=== PATIENT | female | born 1940 | race Caucasian/White ===

== ENCOUNTER 2018-02-03 10:42 | Day surgery (SDC) | payer MEDICARE, MEDICAID ==
[~2018-02-03 10:42] MED LIST: ALBU8HFA PO; ALPR-623 PO; ASPI-611 PO; ATOR10TA87 PO; BIMA2.5D EACHEYE; CALC0.5C2 PO; CLOP75TA35 PO; DULO-31 PO; GABA-532 PO; HYDR-3686 PO; HYDR-569 PO; INSU10VI SQ; LOSA50TA3 PO; NITR0.4T48 SL; SPIIN INH; TRAZ-143 PO
[2018-02-03] MEDS ORDERED: CHOL400T32 PO (16:40)
[2018-02-03] MEDS ORDERED: LORA10TA61 PO (16:40)
[2018-02-03] MEDS ORDERED: AMLO5TAB PO (16:41)
[2018-02-03] MEDS ORDERED: FURO-149 PO (16:42)
[2018-02-03] MEDS ORDERED: OXYC-150 PO (16:42)
[2018-02-03] MEDS ORDERED: OXYC-658 PO (16:43)
[2018-02-03] MEDS ORDERED: PRIM50TA27 (16:44)
== END 2018-02-03 12:46 ==
LOC: WOUND CARE 10:42
PROVIDERS: ATTEND Surgery
DX: E11.622 Type 2 diabetes mellitus with other skin ulcer (principal); L89.892 Pressure ulcer of other site, stage 2; L97.311 Non-pressure chronic ulcer of right ankle limited to breakdown of skin; I48.92 Unspecified atrial flutter; E11.39 Type 2 diabetes mellitus with other diabetic ophthalmic complication; H40.9 Unspecified glaucoma; E78.5 Hyperlipidemia, unspecified; I10 Essential (primary) hypertension; Z79.01 Long term (current) use of anticoagulants; Z95.1 Presence of aortocoronary bypass graft; Z79.82 Long term (current) use of aspirin
CPT/HCPCS: 36416; 82948; 97597; A6021; A6206; A6212

== ENCOUNTER 2018-02-18 10:30 | Day surgery (SDC) | payer MEDICARE, MEDICAID ==
[~2018-02-18 10:30] MED LIST changes: -ALBU8HFA PO; +AMLO5TAB PO; -ATOR10TA87 PO; -BIMA2.5D EACHEYE; -CALC0.5C2 PO; +CHOL400T32 PO; +FURO-149 PO; -HYDR-3686 PO; -HYDR-569 PO; +LORA10TA61 PO; -LOSA50TA3 PO; +OXYC-150 PO; +OXYC-658 PO; +PRIM50TA27; -SPIIN INH; -TRAZ-143 PO
== END 2018-02-18 12:04 | disposition home or self-care (01) ==
LOC: WOUND CARE 10:30
PROVIDERS: ATTEND Surgery
DX: E11.622 Type 2 diabetes mellitus with other skin ulcer (principal); L89.892 Pressure ulcer of other site, stage 2; L97.311 Non-pressure chronic ulcer of right ankle limited to breakdown of skin; I48.92 Unspecified atrial flutter; E11.39 Type 2 diabetes mellitus with other diabetic ophthalmic complication; H40.9 Unspecified glaucoma; E78.5 Hyperlipidemia, unspecified; I10 Essential (primary) hypertension; Z79.01 Long term (current) use of anticoagulants; Z95.1 Presence of aortocoronary bypass graft; Z79.82 Long term (current) use of aspirin
CPT/HCPCS: 36416; 82948; 97597; A6021; A6446

== ENCOUNTER 2018-02-24 10:37 | Day surgery (SDC) | payer MEDICARE, MEDICAID ==
[2018-02-24] MEDS ORDERED: LIDOcaine 2% 5ml jelly ONE (11:46)
[2018-02-24] MEDS ORDERED: CLIN300C17 (14:05)
== END 2018-02-24 13:25 | disposition home or self-care (01) ==
LOC: WOUND CARE 10:37
PROVIDERS: ATTEND Surgery
DX: E11.622 Type 2 diabetes mellitus with other skin ulcer (principal); L97.311 Non-pressure chronic ulcer of right ankle limited to breakdown of skin; L89.892 Pressure ulcer of other site, stage 2; I48.92 Unspecified atrial flutter; E11.39 Type 2 diabetes mellitus with other diabetic ophthalmic complication; H40.9 Unspecified glaucoma; E78.5 Hyperlipidemia, unspecified; I10 Essential (primary) hypertension; Z79.01 Long term (current) use of anticoagulants; Z95.1 Presence of aortocoronary bypass graft; Z79.82 Long term (current) use of aspirin
CPT/HCPCS: 87070; 87075; 87077; 87102; 87176; 87186; 97597; A6021; A6206; A6212

== ENCOUNTER 2018-03-03 11:17 | Day surgery (SDC) | payer MEDICARE, MEDICAID ==
[~2018-03-03 11:17] MED LIST changes: +CLIN300C17
== END 2018-03-03 12:54 | disposition home or self-care (01) ==
LOC: WOUND CARE 11:17
PROVIDERS: ATTEND Surgery
DX: E11.622 Type 2 diabetes mellitus with other skin ulcer (principal); L97.311 Non-pressure chronic ulcer of right ankle limited to breakdown of skin; L89.512 Pressure ulcer of right ankle, stage 2; E11.65 Type 2 diabetes mellitus with hyperglycemia; I48.92 Unspecified atrial flutter; E11.39 Type 2 diabetes mellitus with other diabetic ophthalmic complication; H40.9 Unspecified glaucoma; E78.5 Hyperlipidemia, unspecified; I10 Essential (primary) hypertension; Z79.01 Long term (current) use of anticoagulants; Z95.1 Presence of aortocoronary bypass graft; Z79.82 Long term (current) use of aspirin
CPT/HCPCS: 36416; 82948; 97597; A6021; A6206; A6212

== ENCOUNTER 2018-03-10 11:14 | Day surgery (SDC) | payer MEDICARE, MEDICAID ==
[2018-03-10] MEDS ORDERED: LIDOcaine 2% 5ml jelly ONE (11:26)
== END 2018-03-10 12:24 | disposition home or self-care (01) ==
LOC: WOUND CARE 11:14
PROVIDERS: ATTEND Surgery
DX: E11.622 Type 2 diabetes mellitus with other skin ulcer (principal); L97.311 Non-pressure chronic ulcer of right ankle limited to breakdown of skin; L89.512 Pressure ulcer of right ankle, stage 2; E11.65 Type 2 diabetes mellitus with hyperglycemia; I48.92 Unspecified atrial flutter; E11.39 Type 2 diabetes mellitus with other diabetic ophthalmic complication; H40.9 Unspecified glaucoma; E78.5 Hyperlipidemia, unspecified; I10 Essential (primary) hypertension; Z79.01 Long term (current) use of anticoagulants; Z95.1 Presence of aortocoronary bypass graft; Z79.82 Long term (current) use of aspirin
CPT/HCPCS: 36416; 82948; A6209; A6222; C5271; Q4102; A6250

== ENCOUNTER 2018-03-17 12:03 | Outpatient (CLI) | payer MEDICARE, MEDICAID ==
[2018-03-17] MEDS ORDERED: LIDOcaine 2% 5ml jelly ONE (12:23)
== END 2018-03-17 12:36 | disposition home or self-care (01) ==
LOC: WOUND CARE 12:03
PROVIDERS: ATTEND Surgery
DX: E11.622 Type 2 diabetes mellitus with other skin ulcer (principal); L97.311 Non-pressure chronic ulcer of right ankle limited to breakdown of skin; L89.512 Pressure ulcer of right ankle, stage 2; E11.65 Type 2 diabetes mellitus with hyperglycemia; I48.92 Unspecified atrial flutter; E11.39 Type 2 diabetes mellitus with other diabetic ophthalmic complication; H40.9 Unspecified glaucoma; E78.5 Hyperlipidemia, unspecified; I10 Essential (primary) hypertension; Z79.01 Long term (current) use of anticoagulants; Z95.1 Presence of aortocoronary bypass graft; Z79.82 Long term (current) use of aspirin
CPT/HCPCS: 99214; A6021; A6206; A6212

== ENCOUNTER 2018-03-24 11:26 | Day surgery (SDC) | payer MEDICARE, MEDICAID ==
[2018-03-24] MEDS ORDERED: LIDOcaine 2% 5ml jelly ONE (11:56)
== END 2018-03-24 13:03 | disposition home or self-care (01) ==
LOC: WOUND CARE 11:26
PROVIDERS: ATTEND Surgery
DX: E11.622 Type 2 diabetes mellitus with other skin ulcer (principal); L97.311 Non-pressure chronic ulcer of right ankle limited to breakdown of skin; L89.512 Pressure ulcer of right ankle, stage 2; E11.65 Type 2 diabetes mellitus with hyperglycemia; I48.92 Unspecified atrial flutter; E11.39 Type 2 diabetes mellitus with other diabetic ophthalmic complication; H40.9 Unspecified glaucoma; E78.5 Hyperlipidemia, unspecified; I10 Essential (primary) hypertension; Z79.01 Long term (current) use of anticoagulants; Z95.1 Presence of aortocoronary bypass graft; Z79.82 Long term (current) use of aspirin
CPT/HCPCS: 15271; 36416; 82948; A6209; A6222; Q4131; A6250

== ENCOUNTER 2018-03-31 11:00 | Outpatient (CLI) | payer MEDICARE, MEDICAID ==
[2018-03-31] MEDS ORDERED: LIDOcaine 2% 5ml jelly ONE (11:27)
== END 2018-03-31 12:25 | disposition home or self-care (01) ==
LOC: WOUND CARE 11:00 → EDSTATUS 11:30 → WOUND CARE 12:25
PROVIDERS: ATTEND Surgery
DX: E11.622 Type 2 diabetes mellitus with other skin ulcer (principal); L97.311 Non-pressure chronic ulcer of right ankle limited to breakdown of skin; L89.512 Pressure ulcer of right ankle, stage 2; E11.65 Type 2 diabetes mellitus with hyperglycemia; I48.92 Unspecified atrial flutter; E11.39 Type 2 diabetes mellitus with other diabetic ophthalmic complication; H40.9 Unspecified glaucoma; E78.5 Hyperlipidemia, unspecified; I10 Essential (primary) hypertension; Z79.01 Long term (current) use of anticoagulants; Z95.1 Presence of aortocoronary bypass graft; Z79.82 Long term (current) use of aspirin
CPT/HCPCS: 36416; 82948; 99215; A6021; A6206; A6212

== ENCOUNTER 2018-04-07 11:20 | Day surgery (SDC) | payer MEDICARE, MEDICAID ==
[2018-04-07] MEDS ORDERED: LIDOcaine 2% 5ml jelly ONE (11:47)
== END 2018-04-07 12:54 | disposition home or self-care (01) ==
LOC: WOUND CARE 11:20
PROVIDERS: ATTEND Surgery
DX: E11.622 Type 2 diabetes mellitus with other skin ulcer (principal); L97.311 Non-pressure chronic ulcer of right ankle limited to breakdown of skin; L89.512 Pressure ulcer of right ankle, stage 2; E11.65 Type 2 diabetes mellitus with hyperglycemia; I48.92 Unspecified atrial flutter; E11.39 Type 2 diabetes mellitus with other diabetic ophthalmic complication; H40.9 Unspecified glaucoma; E78.5 Hyperlipidemia, unspecified; I10 Essential (primary) hypertension; Z79.01 Long term (current) use of anticoagulants; Z95.1 Presence of aortocoronary bypass graft; Z79.82 Long term (current) use of aspirin
CPT/HCPCS: 36416; 82948; 97597; A6021; A6206; A6212

== ENCOUNTER 2018-04-07 13:10 | Outpatient (CLI) | payer MEDICARE, MEDICAID ==
[2018-04-07 14:21] LABS: CLARITY,URINE CLEAR (Clear); COLOR,URINE STRAW (Yellow); GLUCOSE, URINE NEGATIVE (Neg); KETONES,URINE NEGATIVE (Neg); LEUKOCYTE ESTERASE ,URINE TRACE (Neg); NITRITES, URINE NEGATIVE (Neg); OCCULT BLOOD,URINE NEGATIVE (Neg); PH,URINE 6.5 (4.8-8.0); PROTEIN,URINE NEGATIVE (Neg); UROBILINOGEN,URINE 0.2 E.U/dL (0.2-1.0)
[2018-04-07 14:22] LABS: BASOPHILS % (AUTO) 0.4 % (0-1); EOSINOPHILS # (AUTO) 0.2 X10'3 (0-0.9); EOSINOPHILS % (AUTO) 1.9 % (0-6); HEMATOCRIT 38.2 % (35.0-45.0); HEMOGLOBIN 12.9 g/dl (12.0-16.0); LYMPHOCYTES # (AUTO) 2.3 X10'3 (1.1-4.8); LYMPHOCYTES % (AUTO) 23.2 % (21-51); MEAN CORPUSCULAR HEMOGLOBIN 27.8 PG (27.0-31.0); MEAN CORPUSCULAR HGB CONC 33.6 % (33.0-36.5); MEAN CORPUSCULAR VOLUME 82.6 FL (78-98); MEAN PLATELET VOLUME 10.3 FL (7.4-10.4); MONOCYTES # (AUTO) 0.5 X10'3 (0-0.9); MONOCYTES % (AUTO) 4.9 % (2-12); NEUTROPHILS # (AUTO) 7.1 X10'3 (1.8-7.7); NEUTROPHILS % (AUTO) 69.6 % (42-75); PLATELET COUNT 214 X10'3 (140-440); RED BLOOD COUNT 4.62 X10'6 (4.20-5.60); RED CELL DISTRIBUTION WIDTH 16.5 % (11.5-14.5); WHITE BLOOD COUNT 10.1 X10'3 (4.5-11.0)
[2018-04-07 14:23] LABS: UA COLLECTION TYPE CLN CATCH MIDSTREAM
[2018-04-07 14:26] LABS: MUCUS STRANDS FEW /LPF (Neg); SQUAMOUS EPITHELIAL CELL,UR FEW /LPF (FEW)
[2018-04-07 14:27] LABS: BACTERIA,URINE FEW /HPF (Neg); HYALINE CASTS 0-3 /LPF (NEGATIVE); WBC CLUMPS,URINE MODERATE /HPF (NEGATIVE)
[2018-04-07 14:28] LABS: RBC,URINE 0-2 /HPF (0-2)
[2018-04-07 14:31] LABS: UA PROTEIN/CREATININE RATIO 0.68 mg/mg Cr (0-0.16)
[2018-04-07 14:37] LABS: ALANINE AMINOTRANSFERASE 27 U/L (12-78); ALBUMIN 3.2 G/DL (3.4-5.0); ALBUMIN/GLOBULIN RATIO 0.7 (1.1-1.5); ALKALINE PHOSPHATASE 147 IU/L (46-116); ANION GAP 8 (8-16); ASPARTATE AMINO TRANSFERASE 24 U/L (10-37); BILIRUBIN,TOTAL 0.2 MG/DL (0.1-1.0); BLOOD UREA NITROGEN 49 MG/DL (7-18); BUN/CREATININE RATIO 29.9 (6.6-38.0); CALCIUM 8.9 MG/DL (8.5-10.1); CHLORIDE 104 MMOL/L (99-107); CREATININE 1.64 MG/DL (0.40-0.90); GLUCOSE 216 MG/DL (70-104); MAGNESIUM 1.9 MG/DL (1.5-2.4); PHOSPHORUS 3.8 MG/DL (2.3-4.5); POTASSIUM 5.1 MMOL/L (3.5-5.1); SODIUM 141 MMOL/L (135-145); TOTAL CARBON DIOXIDE 29.4 MMOL/L (24-32); TOTAL PROTEIN 7.6 G/DL (6.4-8.2); eGFR 30 ML/MIN
== END 2018-04-07 23:59 | disposition home or self-care (01) ==
LOC: LAB 13:10
DX: I12.9 Hypertensive chronic kidney disease with stage 1 through stage 4 chronic kidney disease, or unspecified chronic kidney disease (principal); E11.22 Type 2 diabetes mellitus with diabetic chronic kidney disease; N18.4 Chronic kidney disease, stage 4 (severe); E55.9 Vitamin D deficiency, unspecified; D63.1 Anemia in chronic kidney disease; N30.01 Acute cystitis with hematuria; R80.9 Proteinuria, unspecified; J44.9 Chronic obstructive pulmonary disease, unspecified; Z87.891 Personal history of nicotine dependence
CPT/HCPCS: 36415; 80053; 81001; 82306; 82570; 83735; 84100; 84156; 85025; 87077; 87088; 87186

== ENCOUNTER 2018-04-14 10:57 | Outpatient (CLI) | payer MEDICARE, MEDICAID | END 2018-04-14 12:47 | disposition home or self-care (01) | LOC: WOUND CARE 10:57 → EDSTATUS 11:30 → WOUND CARE 12:47 | PROVIDERS: ATTEND Surgery | DX: E11.622 Type 2 diabetes mellitus with other skin ulcer (principal); L97.311 Non-pressure chronic ulcer of right ankle limited to breakdown of skin; L89.512 Pressure ulcer of right ankle, stage 2; E11.65 Type 2 diabetes mellitus with hyperglycemia; I48.92 Unspecified atrial flutter; E11.39 Type 2 diabetes mellitus with other diabetic ophthalmic complication; H40.9 Unspecified glaucoma; E78.5 Hyperlipidemia, unspecified; I10 Essential (primary) hypertension; Z79.01 Long term (current) use of anticoagulants; Z95.1 Presence of aortocoronary bypass graft; Z79.82 Long term (current) use of aspirin | CPT/HCPCS: 36416; 82948; 99215; A6212 ==

== ENCOUNTER 2018-04-28 11:07 | Day surgery (SDC) | payer MEDICARE, MEDICAID ==
[2018-04-28] MEDS ORDERED: LIDOcaine 2% 5ml jelly ONE (11:51)
== END 2018-04-28 12:43 | disposition home or self-care (01) ==
LOC: WOUND CARE 11:07
PROVIDERS: ATTEND Surgery
DX: E11.622 Type 2 diabetes mellitus with other skin ulcer (principal); L97.311 Non-pressure chronic ulcer of right ankle limited to breakdown of skin; L89.512 Pressure ulcer of right ankle, stage 2; E11.65 Type 2 diabetes mellitus with hyperglycemia; I48.92 Unspecified atrial flutter; E11.39 Type 2 diabetes mellitus with other diabetic ophthalmic complication; H40.9 Unspecified glaucoma; E78.5 Hyperlipidemia, unspecified; I10 Essential (primary) hypertension; Z79.01 Long term (current) use of anticoagulants; Z95.1 Presence of aortocoronary bypass graft; Z79.82 Long term (current) use of aspirin
CPT/HCPCS: 36416; 82948; 97597; A6021; A6206; A6212

== ENCOUNTER 2018-05-12 09:27 | Outpatient (CLI) | payer MEDICARE, MEDICAID | END 2018-05-12 10:15 | disposition home or self-care (01) | LOC: WOUND CARE 09:27 → EDSTATUS 09:30 → WOUND CARE 10:15 | PROVIDERS: ATTEND Surgery | DX: E11.622 Type 2 diabetes mellitus with other skin ulcer (principal); L97.311 Non-pressure chronic ulcer of right ankle limited to breakdown of skin; L89.512 Pressure ulcer of right ankle, stage 2; E11.65 Type 2 diabetes mellitus with hyperglycemia; I48.92 Unspecified atrial flutter; E11.39 Type 2 diabetes mellitus with other diabetic ophthalmic complication; H40.9 Unspecified glaucoma; E78.5 Hyperlipidemia, unspecified; I10 Essential (primary) hypertension; Z79.01 Long term (current) use of anticoagulants; Z95.1 Presence of aortocoronary bypass graft; Z79.82 Long term (current) use of aspirin | CPT/HCPCS: 99211; A6021; A6206; A6212 ==

== ENCOUNTER 2018-05-19 10:05 | Day surgery (SDC) | payer MEDICARE, MEDICAID | END 2018-05-19 11:51 | disposition home or self-care (01) | LOC: WOUND CARE 10:05 | PROVIDERS: ATTEND Surgery | DX: E11.622 Type 2 diabetes mellitus with other skin ulcer (principal); L97.311 Non-pressure chronic ulcer of right ankle limited to breakdown of skin; L89.512 Pressure ulcer of right ankle, stage 2; E11.65 Type 2 diabetes mellitus with hyperglycemia; I48.92 Unspecified atrial flutter; E11.39 Type 2 diabetes mellitus with other diabetic ophthalmic complication; H40.9 Unspecified glaucoma; I12.9 Hypertensive chronic kidney disease with stage 1 through stage 4 chronic kidney disease, or unspecified chronic kidney disease; E11.22 Type 2 diabetes mellitus with diabetic chronic kidney disease; N18.4 Chronic kidney disease, stage 4 (severe); D63.1 Anemia in chronic kidney disease; J44.9 Chronic obstructive pulmonary disease, unspecified; E78.5 Hyperlipidemia, unspecified; Z79.01 Long term (current) use of anticoagulants; Z95.1 Presence of aortocoronary bypass graft; Z79.82 Long term (current) use of aspirin; Z87.891 Personal history of nicotine dependence | CPT/HCPCS: 36416; 82948; 97597; A6021; A6206; A6212 ==

== ENCOUNTER 2018-05-26 11:38 | Outpatient (CLI) | payer MEDICARE, MEDICAID ==
[~2018-05-26 11:38] MED LIST changes: -CLIN300C17
[2018-05-26] MEDS ORDERED: LIDOcaine 2% 5ml jelly ONE (12:47)
[2018-05-26] MEDS ORDERED: nystatin/triamcinolone cream 15gm TP ONE (13:13)
[2018-05-26] MEDS ORDERED: MYCOL15O TOP (14:10)
== END 2018-05-26 13:22 | disposition home or self-care (01) ==
LOC: WOUND CARE 11:38
PROVIDERS: ATTEND Surgery
DX: E11.622 Type 2 diabetes mellitus with other skin ulcer (principal); L97.311 Non-pressure chronic ulcer of right ankle limited to breakdown of skin; L89.512 Pressure ulcer of right ankle, stage 2; E11.65 Type 2 diabetes mellitus with hyperglycemia; I48.92 Unspecified atrial flutter; E11.39 Type 2 diabetes mellitus with other diabetic ophthalmic complication; H40.9 Unspecified glaucoma; I12.9 Hypertensive chronic kidney disease with stage 1 through stage 4 chronic kidney disease, or unspecified chronic kidney disease; E11.22 Type 2 diabetes mellitus with diabetic chronic kidney disease; N18.4 Chronic kidney disease, stage 4 (severe); D63.1 Anemia in chronic kidney disease; J44.9 Chronic obstructive pulmonary disease, unspecified; E78.5 Hyperlipidemia, unspecified; Z79.01 Long term (current) use of anticoagulants; Z95.1 Presence of aortocoronary bypass graft; Z79.82 Long term (current) use of aspirin; Z87.891 Personal history of nicotine dependence
CPT/HCPCS: 36416; 82948; 99215; A6212

== ENCOUNTER 2018-06-02 11:07 | Outpatient (CLI) | payer MEDICARE, MEDICAID ==
[~2018-06-02 11:07] MED LIST changes: +MYCOL15O TOP
== END 2018-06-02 12:55 | disposition home or self-care (01) ==
LOC: WOUND CARE 11:07 → EDSTATUS 11:30 → WOUND CARE 12:55
PROVIDERS: ATTEND Surgery
DX: E11.622 Type 2 diabetes mellitus with other skin ulcer (principal); L97.311 Non-pressure chronic ulcer of right ankle limited to breakdown of skin; L89.512 Pressure ulcer of right ankle, stage 2; E11.65 Type 2 diabetes mellitus with hyperglycemia; I48.92 Unspecified atrial flutter; E11.39 Type 2 diabetes mellitus with other diabetic ophthalmic complication; H40.9 Unspecified glaucoma; I12.9 Hypertensive chronic kidney disease with stage 1 through stage 4 chronic kidney disease, or unspecified chronic kidney disease; E11.22 Type 2 diabetes mellitus with diabetic chronic kidney disease; N18.4 Chronic kidney disease, stage 4 (severe); D63.1 Anemia in chronic kidney disease; J44.9 Chronic obstructive pulmonary disease, unspecified; E78.5 Hyperlipidemia, unspecified; Z79.01 Long term (current) use of anticoagulants; Z95.1 Presence of aortocoronary bypass graft; Z79.82 Long term (current) use of aspirin; Z87.891 Personal history of nicotine dependence
CPT/HCPCS: 36416; 82948; 99215; A6212

== ENCOUNTER 2018-08-08 10:10 | Outpatient (CLI) | payer MEDICARE, MEDICAID ==
[2018-08-08] MEDS ORDERED: hydrocortisone 1% cream 28gm TP ONE (12:42)
== END 2018-08-08 12:50 | disposition home or self-care (01) ==
LOC: WOUND CARE 10:10
PROVIDERS: ATTEND Surgery
DX: E11.622 Type 2 diabetes mellitus with other skin ulcer (principal); L97.311 Non-pressure chronic ulcer of right ankle limited to breakdown of skin; L89.512 Pressure ulcer of right ankle, stage 2; E11.65 Type 2 diabetes mellitus with hyperglycemia; I48.92 Unspecified atrial flutter; E11.39 Type 2 diabetes mellitus with other diabetic ophthalmic complication; H40.9 Unspecified glaucoma; I12.9 Hypertensive chronic kidney disease with stage 1 through stage 4 chronic kidney disease, or unspecified chronic kidney disease; E11.22 Type 2 diabetes mellitus with diabetic chronic kidney disease; N18.4 Chronic kidney disease, stage 4 (severe); D63.1 Anemia in chronic kidney disease; J44.9 Chronic obstructive pulmonary disease, unspecified; E78.5 Hyperlipidemia, unspecified; Z79.01 Long term (current) use of anticoagulants; Z95.1 Presence of aortocoronary bypass graft; Z79.82 Long term (current) use of aspirin; Z87.891 Personal history of nicotine dependence
CPT/HCPCS: 99215; A6212

== ENCOUNTER 2019-01-02 10:25 | Outpatient (CLI) | payer MEDICARE, MEDICAID ==
[2019-01-02] MEDS ORDERED: LIDOcaine/PRILOcaine 5gm cream TP ONE (11:40)
--- NOTE | 2019-01-02 15:38 | NUR ---
Patient arrived safely into [facility] via wheelchair. Patient admitted to outpatient wound care for return visit with Yunior Salazar MD. Patient assessed and medications and medical history reviewed. Dr. Salazar at bedside accompanied by RN. Wound assessed and no debridement was done. Plan of care discussed with patient. Dressings placed per MD orders. Patient instructed on the signs and symptoms of infection and to call the Wound Center if any occur or to go to the ED if we are closed: Increased pain in wound Increase in drainage from the wound Redness in the skin surrounding the wound Bleeding from the wound Temperature of 101 or greater Patient instructed that elevated blood sugars delay healing of the wound and can cause further complications including but not limited to amputation of toes or feet. Patient instructed that the weight of their body puts a large amount of pressure on their wounds. This pressure keeps the new tissue from growing and inhibits new blood vessels from forming. Explained that, if they continue to bear weight on a body part that has a wound, the time it takes to heal the wound increases, the wound may get worse or the wound may not heal at all. Patient verbalized understanding of all discharge instructions and plan of care. Patient left in stable condition with no sign or symptom of distress at time of discharge. Addendum: 01/02/19 at 1542 by Amy Gunn RN Amended: Links added.
== END 2019-01-02 12:45 | disposition home or self-care (01) ==
LOC: WOUND CARE 10:25 → EDSTATUS 10:30 → WOUND CARE 12:45
PROVIDERS: ATTEND Surgery
DX: E11.622 Type 2 diabetes mellitus with other skin ulcer (principal); L97.311 Non-pressure chronic ulcer of right ankle limited to breakdown of skin; L89.512 Pressure ulcer of right ankle, stage 2; E11.65 Type 2 diabetes mellitus with hyperglycemia; I48.92 Unspecified atrial flutter; E11.39 Type 2 diabetes mellitus with other diabetic ophthalmic complication; H40.9 Unspecified glaucoma; I12.9 Hypertensive chronic kidney disease with stage 1 through stage 4 chronic kidney disease, or unspecified chronic kidney disease; E11.22 Type 2 diabetes mellitus with diabetic chronic kidney disease; N18.4 Chronic kidney disease, stage 4 (severe); D63.1 Anemia in chronic kidney disease; J44.9 Chronic obstructive pulmonary disease, unspecified; E78.5 Hyperlipidemia, unspecified; Z79.01 Long term (current) use of anticoagulants; Z95.1 Presence of aortocoronary bypass graft; Z79.82 Long term (current) use of aspirin; Z87.891 Personal history of nicotine dependence
CPT/HCPCS: 36416; 82948; G0463; A4414; A6446

== ENCOUNTER 2019-01-10 10:45 | Outpatient (CLI) | payer MEDICARE, MEDICAID ==
--- NOTE | 2019-01-10 12:27 | NUR ---
[facility] safely [facility]. Patient admitted to outpatient wound care for physician visit with Yunior Salazar MD. Dressing removed and wound cleansed. Patient assessed for changes in conditions, medications and medical history. Dr. Salazar at bedside accompanied by RN. Wound assessed, time out performed by MD/RN. Wound debrided as detailed in the physician progress/procedure note. Plan of care discussed with patient. Dressings placed per MD orders. Patient instructed on the signs and symptoms of infection and to call the Wound Center if any occur or to go to the ED if we are closed: Increased pain in wound Increase in drainage from the wound Redness in the skin surrounding the wound Bleeding from the wound Temperature of 101 or greater Patient instructed that elevated blood sugars delay healing of the wound and can cause further complications including but not limited to amputation of toes or feet. Patient instructed that the weight of their body puts a large amount of pressure on their wounds. This pressure keeps the new tissue from growing and inhibits new blood vessels from forming. Explained that, if they continue to bear weight on a body part that has a wound, the time it takes to heal the wound increases, the wound may get worse or the wound may not heal at all. Patient verbalized understanding of all discharge instructions and plan of care. Patient left in stable condition with no sign or symptom of distress at time of discharge. Addendum: 01/10/19 at 1235 by Amy Gunn RN Amended: Links added.
== END 2019-01-10 12:17 | disposition home or self-care (01) ==
LOC: WOUND CARE 10:45 → EDSTATUS 11:00 → WOUND CARE 12:17
PROVIDERS: ATTEND Surgery
DX: E11.622 Type 2 diabetes mellitus with other skin ulcer (principal); L97.311 Non-pressure chronic ulcer of right ankle limited to breakdown of skin; L89.512 Pressure ulcer of right ankle, stage 2; E11.65 Type 2 diabetes mellitus with hyperglycemia; I48.92 Unspecified atrial flutter; E11.39 Type 2 diabetes mellitus with other diabetic ophthalmic complication; H40.9 Unspecified glaucoma; I12.9 Hypertensive chronic kidney disease with stage 1 through stage 4 chronic kidney disease, or unspecified chronic kidney disease; E11.22 Type 2 diabetes mellitus with diabetic chronic kidney disease; N18.4 Chronic kidney disease, stage 4 (severe); D63.1 Anemia in chronic kidney disease; J44.9 Chronic obstructive pulmonary disease, unspecified; E78.5 Hyperlipidemia, unspecified; Z79.01 Long term (current) use of anticoagulants; Z95.1 Presence of aortocoronary bypass graft; Z79.82 Long term (current) use of aspirin; Z87.891 Personal history of nicotine dependence
CPT/HCPCS: 36416; 82948; 93926; G0463; A6212

== ENCOUNTER 2019-01-23 09:40 | Outpatient (CLI) | payer MEDICARE, MEDICAID ==
--- NOTE | 2019-01-23 16:29 | NUR ---
Patient arrived via wheelchair from [facility] and was admitted to outpatient wound care for physician visit with Yunior Salazar MD. Placed in contact isolation precautions per hospital policy. Dressing removed, wound cleansed. Patient assessed for changes in conditions, medications and medical history. 1010 - 108. Patient instructed that elevated blood sugars delay healing of the wound and can cause further complications including but not limited to amputation of toes or feet. 1028 - Dr. Salazar at bedside accompanied by RN. Wound assessed by MD; orders written. Plan of care discussed with patient. Dressings placed per MD orders. Patient instructed on the signs and symptoms of infection and to call the Wound Center if any occur or to go to the ED if we are closed: Increased pain in wound Increase in drainage from the wound Redness in the skin surrounding the wound Bleeding from the wound Temperature of 101 or greater Patient instructed that the weight of their body puts a large amount of pressure on their wounds. This pressure keeps the new tissue from growing and inhibits new blood vessels from forming. Explained that, if they continue to bear weight on a body part that has a wound, the time it takes to heal the wound increases, the wound may get worse or the wound may not heal at all. Patient verbalized understanding of all discharge instructions and plan of care and exited via wheelchair out to [facility] in stable condition with no sign or symptom of distress at time of discharge. Report called to Cody at [facility]. Cody is told of patient's stated complaint today of pain with urination and "they are not doing anything about it" - Cody states he will "order a UA right now". Wound care orders also discussed.
== END 2019-01-23 10:57 | disposition home or self-care (01) ==
LOC: WOUND CARE 09:40 → EDSTATUS 10:00 → WOUND CARE 10:57
PROVIDERS: ATTEND Surgery
DX: E11.622 Type 2 diabetes mellitus with other skin ulcer (principal); L97.311 Non-pressure chronic ulcer of right ankle limited to breakdown of skin; E11.65 Type 2 diabetes mellitus with hyperglycemia; I48.92 Unspecified atrial flutter; E11.39 Type 2 diabetes mellitus with other diabetic ophthalmic complication; H40.9 Unspecified glaucoma; I12.9 Hypertensive chronic kidney disease with stage 1 through stage 4 chronic kidney disease, or unspecified chronic kidney disease; E11.22 Type 2 diabetes mellitus with diabetic chronic kidney disease; N18.4 Chronic kidney disease, stage 4 (severe); D63.1 Anemia in chronic kidney disease; J44.9 Chronic obstructive pulmonary disease, unspecified; E78.5 Hyperlipidemia, unspecified; Z79.01 Long term (current) use of anticoagulants; Z95.1 Presence of aortocoronary bypass graft; Z79.82 Long term (current) use of aspirin; Z87.891 Personal history of nicotine dependence
CPT/HCPCS: 36416; 82948; G0463; A4414

== ENCOUNTER 2019-02-21 10:53 | Outpatient (CLI) | payer MEDICARE, MEDICAID ==
--- NOTE | 2019-02-21 12:58 | NUR ---
Patient ambulated with walker accompanied by son Semaj from [facility] and was admitted to outpatient wound care for physician visit with Yunior Salazar MD. Wound cleansed. Patient assessed for changes in conditions, medications and medical history. 1120 - blood glucose 197. Patient instructed that elevated blood sugars delay healing of the wound and can cause further complications including but not limited to amputation of toes or feet. 1210 - Dr. Salazar at bedside accompanied by RN. Wound assessed by MD; orders written. Plan of care discussed with patient and Semaj. Dressings placed per MD orders. Patient is to follow up on an as needed basis at the wound clinic. Patient instructed on the signs and symptoms of infection and to call the Wound Center if any occur or to go to the ED if we are closed: Increased pain in wound Increase in drainage from the wound Redness in the skin surrounding the wound Bleeding from the wound Temperature of 101 or greater Patient instructed that the weight of their body puts a large amount of pressure on their wounds. This pressure keeps the new tissue from growing and inhibits new blood vessels from forming. Explained that, if they continue to bear weight on a body part that has a wound, the time it takes to heal the wound increases, the wound may get worse or the wound may not heal at all. Patient and Semaj verbalized understanding of all discharge instructions and plan of care and ambulated with walker accompanied by Semaj out to [facility] in stable condition with no sign or symptom of distress at time of discharge.
== END 2019-02-21 12:22 | disposition home or self-care (01) ==
LOC: WOUND CARE 10:53 → EDSTATUS 11:00 → WOUND CARE 12:22
PROVIDERS: ATTEND Surgery
DX: E11.622 Type 2 diabetes mellitus with other skin ulcer (principal); L97.311 Non-pressure chronic ulcer of right ankle limited to breakdown of skin; E11.65 Type 2 diabetes mellitus with hyperglycemia; I48.92 Unspecified atrial flutter; E11.39 Type 2 diabetes mellitus with other diabetic ophthalmic complication; H40.9 Unspecified glaucoma; I12.9 Hypertensive chronic kidney disease with stage 1 through stage 4 chronic kidney disease, or unspecified chronic kidney disease; E11.22 Type 2 diabetes mellitus with diabetic chronic kidney disease; N18.4 Chronic kidney disease, stage 4 (severe); D63.1 Anemia in chronic kidney disease; J44.9 Chronic obstructive pulmonary disease, unspecified; E78.5 Hyperlipidemia, unspecified; Z79.01 Long term (current) use of anticoagulants; Z95.1 Presence of aortocoronary bypass graft; Z79.82 Long term (current) use of aspirin; Z87.891 Personal history of nicotine dependence
CPT/HCPCS: 36416; 82948; G0463; A6212

== ENCOUNTER 2019-06-10 20:35 | Emergency (ER) | payer MEDICARE, MEDICAID ==
[~2019-06-10] VITALS: Ht 149.9 cm; Wt 100.0 kg
[2019-06-10] MEDS ORDERED: morphine 4 MG/ML inj SYRINge IV ONE (20:45)
[2019-06-10 21:29] LABS: BASOPHILS # (AUTO) 0.1 X10'3 (0-0.2); BASOPHILS % (AUTO) 0.8 % (0-1); EOSINOPHILS # (AUTO) 0.1 X10'3 (0-0.9); EOSINOPHILS % (AUTO) 1.1 % (0-6); HEMATOCRIT 39.2 % (35.0-45.0); LYMPHOCYTES # (AUTO) 2.1 X10'3 (1.1-4.8); LYMPHOCYTES % (AUTO) 19.7 % (21-51); MEAN CORPUSCULAR HEMOGLOBIN 27.9 PG (27.0-31.0); MEAN CORPUSCULAR HGB CONC 33.1 g/dL (33.0-36.5); MEAN CORPUSCULAR VOLUME 84.3 FL (78-98); MEAN PLATELET VOLUME 10.7 FL (7.4-10.4); MONOCYTES # (AUTO) 0.5 X10'3 (0-0.9); MONOCYTES % (AUTO) 4.9 % (2-12); NEUTROPHILS % (AUTO) 73.5 % (42-75); PLATELET COUNT 179 X10'3 (140-440); RED BLOOD COUNT 4.65 X10'6 (4.20-5.60); RED CELL DISTRIBUTION WIDTH 15.2 % (11.5-14.5); WHITE BLOOD COUNT 10.9 X10'3 (4.5-11.0)
[2019-06-10 21:40] LABS: PARTIAL THROMBOPLASTIN TIME 36 SECONDS (22-32)
[2019-06-10 21:49] LABS: ALANINE AMINOTRANSFERASE 19 U/L (12-78); ALBUMIN/GLOBULIN RATIO 0.8 (1.1-1.5); ALKALINE PHOSPHATASE 103 IU/L (46-116); ANION GAP 7 (8-16); ASPARTATE AMINO TRANSFERASE 18 U/L (10-37); BILIRUBIN,TOTAL 0.3 MG/DL (0.1-1.0); BLOOD UREA NITROGEN 48 MG/DL (7-18); BUN/CREATININE RATIO 33.1 (6.6-38.0); CALCIUM 8.6 MG/DL (8.5-10.1); CHLORIDE 106 MMOL/L (99-107); CREATININE 1.45 MG/DL (0.40-0.90); GLUCOSE 175 MG/DL (70-104); POTASSIUM 4.3 MMOL/L (3.5-5.1); SODIUM 141 MMOL/L (135-145); TOTAL CARBON DIOXIDE 27.7 MMOL/L (24-32); TOTAL PROTEIN 6.9 G/DL (6.4-8.2); eGFR 35 ML/MIN
[2019-06-10] MEDS ORDERED: LORazepam 2 mg/ml vial IV ONE (22:15)
[2019-06-11 00:33] VITALS: BP 113/65
== END 2019-06-11 02:52 | disposition home or self-care (01) ==
LOC: ER 20:35
DX: R07.89 Other chest pain (principal); I25.10 Atherosclerotic heart disease of native coronary artery without angina pectoris; I10 Essential (primary) hypertension; M19.90 Unspecified osteoarthritis, unspecified site; G89.29 Other chronic pain; Z95.1 Presence of aortocoronary bypass graft; Z98.61 Coronary angioplasty status; Z88.0 Allergy status to penicillin; Z88.2 Allergy status to sulfonamides; Z88.8 Allergy status to other drugs, medicaments and biological substances; Z79.899 Other long term (current) drug therapy; Z79.82 Long term (current) use of aspirin; Z98.890 Other specified postprocedural states; Z90.49 Acquired absence of other specified parts of digestive tract
CPT/HCPCS: 36415; 71045; 80053; 84484; 85025; 85610; 85730; 93005; 96374; 96375; 99284; J2060; J2270

== ENCOUNTER 2021-02-17 10:59 | Emergency (ER) | payer MEDICARE, MEDICAID ==
[~2021-02-17] VITALS: Ht 157.5 cm; Wt 95.9 kg
[~2021-02-17 10:59] MED LIST changes: +CLOP75TA34 PO; -CLOP75TA35 PO
--- NOTE | 2021-02-17 11:58 | NUR ---
back from ct
[2021-02-17 12:32] LABS: CLARITY,URINE CLOUDY (Clear); COLOR,URINE STRAW (Yellow); UA COLLECTION TYPE CLN CATCH MIDSTREAM
[2021-02-17 12:33] LABS: URINE AMPHETAMINE SCREEN NEGATIVE (Neg); URINE BARBITUATE SCREEN NEGATIVE (Neg); URINE BENZODIAZEPINES SCREEN NEGATIVE (Neg); URINE CANNABINOID SCREEN NEGATIVE (Neg); URINE COCAINE SCREEN NEGATIVE (Neg); URINE METHADONE SCREEN NEGATIVE (Neg); URINE OPIATE SCREEN NEGATIVE (Neg); URINE PHENCYCLIDINE SCREEN NEGATIVE (Neg)
[2021-02-17 12:37] LABS: GLUCOSE, URINE NEGATIVE (Neg); KETONES,URINE NEGATIVE (Neg); LEUKOCYTE ESTERASE ,URINE LARGE (Neg); NITRITES, URINE POSITIVE (Neg); OCCULT BLOOD,URINE NEGATIVE (Neg); PH,URINE 5.5 (4.8-8.0); PROTEIN,URINE NEGATIVE (Neg); UROBILINOGEN,URINE 0.2 E.U/dL (0.2-1.0)
[2021-02-17 12:58] LABS: HYALINE CASTS 0-3 /LPF (NEGATIVE); SQUAMOUS EPITHELIAL CELL,UR MODERATE /LPF (FEW); WBC CLUMPS,URINE MANY /HPF (NEGATIVE)
[2021-02-17 12:59] LABS: WBC,URINE TNTC /HPF (0-4)
[2021-02-17 13:00] LABS: BACTERIA,URINE 4+ /HPF (Neg); RBC,URINE 0-2 /HPF (0-2); TRANSITIONAL EPI CELLS,URINE FEW /HPF
[2021-02-17] MEDS ORDERED: dexamethasone sod phosphate 10mg/ml inj IV STA (13:35)
[2021-02-17] MEDS ORDERED: CefTRIAXone 2gm/D5W 50ml BAG 50 ML IV ONE (13:35)
[2021-02-17] MEDS ORDERED: vancomycin/NS 1 GM ADD-VANTAGE 250 ML IV ONE (13:35)
[2021-02-17] MEDS ORDERED: CEPH-585 PO ×2 (14:13→14:27)
[2021-02-17] MEDS ORDERED: BUSP10TA10 PO (14:49)
[2021-02-17] MEDS ORDERED: BISA10SU60 RC (14:49)
[2021-02-17] MEDS ORDERED: ASPI-10 PO (14:49)
[2021-02-17] MEDS ORDERED: ZAR5T PO (14:49)
[2021-02-17] MEDS ORDERED: DOCU250C96 PO (14:49)
[2021-02-17] MEDS ORDERED: BRIM5DRO EACHEYE (14:49)
[2021-02-17] MEDS ORDERED: MELA1TAB28 PO (14:49)
[2021-02-17] MEDS ORDERED: CHOL100046 PO (14:49)
[2021-02-17] MEDS ORDERED: FAMO20TA8 PO (14:49)
[2021-02-17] MEDS ORDERED: DOCU-148 PO (14:49)
[2021-02-17] MEDS ORDERED: INSU100I29 SQ (14:52)
[2021-02-17] MEDS ORDERED: FOLI0.8T22 PO (14:52)
[2021-02-17] MEDS ORDERED: RIVA15TA PO (14:52)
[2021-02-17] MEDS ORDERED: SERT-434 PO (14:52)
[2021-02-17] MEDS ORDERED: HUM7525 SQ (14:53)
[2021-02-17] MEDS ORDERED: FURO20TA4 PO (14:54)
[2021-02-17] MEDS ORDERED: LATA2.5D14 EACHEYE (14:56)
[2021-02-17] MEDS ORDERED: MELA3TAB39 PO (14:57)
[2021-02-17 18:19] VITALS: BP 116/82
[2021-02-18] MEDS ORDERED: DEC1T PO (19:04)
[2021-02-18] MEDS ORDERED: SENN-263 PO (19:04)
[2021-02-18] MEDS ORDERED: CRAN3875 PO (19:04)
[2021-02-18] MEDS ORDERED: LACT1CAP65 PO (19:04)
[2021-02-18] MEDS ORDERED: LORA10CA PO (19:04)
[2021-02-18] MEDS ORDERED: FLUT16SP2 BOTHNARES (19:04)
[2021-02-18] MEDS ORDERED: POLY119P2 PO (19:04)
[2021-02-18] MEDS ORDERED: ZINC50TA67 PO (19:07)
[2021-02-18] MEDS ORDERED: ASCO500C17 PO (19:07)
[2021-02-19] MEDS ORDERED: CEFD300C3 PO (09:57)
== END 2021-02-17 18:23 | disposition home or self-care (01) ==
LOC: ER 10:59
DX: U07.1 COVID-19 (principal); N39.0 Urinary tract infection, site not specified; R41.82 Altered mental status, unspecified; I25.10 Atherosclerotic heart disease of native coronary artery without angina pectoris; I10 Essential (primary) hypertension; M19.90 Unspecified osteoarthritis, unspecified site; G89.29 Other chronic pain; Z98.890 Other specified postprocedural states; Z95.1 Presence of aortocoronary bypass graft; Z90.49 Acquired absence of other specified parts of digestive tract; Z98.61 Coronary angioplasty status; Z79.82 Long term (current) use of aspirin; Z79.4 Long term (current) use of insulin; Z91.041 Radiographic dye allergy status; Z88.0 Allergy status to penicillin; Z88.2 Allergy status to sulfonamides; Z88.8 Allergy status to other drugs, medicaments and biological substances; Z79.899 Other long term (current) drug therapy
CPT/HCPCS: 36415; 70450; 71045; 80305; 81001; 83605; 87040; 87077; 87088; 87186; 93005; 96365; 96368; 96375; 99285; J0696; J1100; J3370

== ENCOUNTER 2021-10-23 08:36 | Emergency (ER) | payer MEDICARE, MEDICAID ==
[~2021-10-23] VITALS: Ht 160 cm; Wt 100.0 kg
[~2021-10-23 08:36] MED LIST changes: -ALPR-623 PO; +ASCO500C17 PO; +ASPI-10 PO; -ASPI-611 PO; +BISA10SU60 RC; +BRIM5DRO EACHEYE; +BUSP10TA10 PO; +CHOL100046 PO; -CHOL400T32 PO; -CLOP75TA34 PO; +CRAN3875 PO; +DOCU250C96 PO; +FAMO20TA8 PO; +FLUT16SP2 BOTHNARES; +FOLI0.8T22 PO; -FURO-149 PO; +FURO20TA4 PO; +HUM7525 SQ; +INSU100I29 SQ; -INSU10VI SQ; +LACT1CAP65 PO; +LATA2.5D14 EACHEYE; +LORA10CA PO; -LORA10TA61 PO; +MELA3TAB39 PO; -MYCOL15O TOP; -OXYC-658 PO; +POLY119P2 PO; -PRIM50TA27; +RIVA15TA PO; +SENN-263 PO; +SERT-434 PO; +ZAR5T PO; +ZINC50TA67 PO
--- NOTE | 2021-10-23 09:36 | NUR ---
Pt out to CT.
[2021-10-23] MEDS ORDERED: oxyCODONE/APAP 10/325mg tablet PO ONE (10:00)
[2021-10-23 10:20] VITALS: BP 140/68
== END 2021-10-23 12:25 ==
LOC: ER 08:38
DX: K29.01 Acute gastritis with bleeding (principal); E05.20 Thyrotoxicosis with toxic multinodular goiter without thyrotoxic crisis or storm; I25.10 Atherosclerotic heart disease of native coronary artery without angina pectoris; I10 Essential (primary) hypertension; M19.90 Unspecified osteoarthritis, unspecified site; G89.29 Other chronic pain; Z87.440 Personal history of urinary (tract) infections; Z90.89 Acquired absence of other organs; Z90.49 Acquired absence of other specified parts of digestive tract; Z98.890 Other specified postprocedural states; Z88.2 Allergy status to sulfonamides; Z88.0 Allergy status to penicillin; Z88.8 Allergy status to other drugs, medicaments and biological substances; Z79.82 Long term (current) use of aspirin; Z79.4 Long term (current) use of insulin; Z79.899 Other long term (current) drug therapy
CPT/HCPCS: 71045; 71250; 93005; 99285